=== PATIENT | male | born 1965 | race Caucasian/White ===

== ENCOUNTER → 2016-11-18 | Outpatient (CLI) | payer BC ==
[2016-11-18 08:41] LABS: CH 31.1; CHCM 33.5; HCT 48.6 % (39.0-53.0); HGB 16.3 gm/dL (13.0-17.5); MCH 31.2 pg (25.0-35.0); MCHC 33.5 g/dL (31.0-37.0); MCV 93.3 fL (80.0-100.0); Mean Platelet Volume 8.8; RBC 5.21 m/uL (4.30-5.90); RDW 13.5 % (11.5-15.5); WBC 5.8 k/uL (3.8-10.6)
[2016-11-18 12:47] LABS: ALT 83 U/L (21-72); AST 87 U/L (17-59); Alkaline Phosphatase 117 U/L (38-126); Anion Gap 5 mmol/L; Blood Urea Nitrogen 13 mg/dL (9-20); Carbon Dioxide 28 mmol/L (22-30); Chloride 105 mmol/L (98-107); Glucose 108 mg/dL (74-99); Non-African American GFR(MDRD) >60 (>60 ml/min/1.73 sqM); Sodium 138 mmol/L (137-145); Total Bilirubin 1.1 mg/dL (0.2-1.3); Total Protein 7.4 g/dL (6.3-8.2)
[2016-11-18 13:07] LABS: Follicle Stimulating Hormone 4.2 mIU/mL (1.6-9.7); Prolactin 10.4 ng/mL (3.7-17.9)
== END | disposition home or self-care (01) ==
LOC: LABWHC1 08:25
PROVIDERS: ATTEND Internal Medicine Endocrinology, Diabetes & Metabolism
DX: D35.2 Benign neoplasm of pituitary gland (principal); R53.83 Other fatigue
CPT/HCPCS: 36415; 80053; 82024; 82533; 83001; 83002; 84146; 84403; 84439; 84443; 84481; 85027

== ENCOUNTER → 2016-11-24 | Outpatient (CLI) | payer BC ==
--- NOTE | 2016-11-24 19:24 | US ---
EXAMINATION TYPE: US scrotum with doppler. Grayscale and color Doppler Duplex imaging performed of t iftikhar scrotum. DATE OF EXAM: 11/24/2016 6:09 PM COMPARISON: NONE CLINICAL HISTORY: R79.89 Other specified abnormal findings of blood. Elevated testosterone levels EXAM MEASUREMENTS: TESTICLES: Right Testicle: 4.1 x 2.8 x 3.2 cm Left Testicle: 4.4 x 2.4 x 3.3 cm EPIDIDYMIS HEAD: Right Epididymis: 1.3 cm Left Epididymis: 1.3 cm Doppler performed to assess for testicular vascularity; good bilateral color flow and waveforms are s een. There is no evidence of testicular torsion. Presence of hydroceles: No Presence of varicoceles: No Right epididymis appears prominent. Cyst visualized within left epididymis measuring 0.4 x 0.3 x 0.3 cm IMPRESSION: No testicular torsion or mass. Small left epididymal cyst is noted. No free fluid.
== END | disposition home or self-care (01) ==
LOC: RADUSMAIN 17:40
PROVIDERS: ATTEND Internal Medicine Endocrinology, Diabetes & Metabolism
DX: R79.89 Other specified abnormal findings of blood chemistry (principal)
CPT/HCPCS: 76870; 93975

== ENCOUNTER → 2017-03-15 | Outpatient (CLI) | payer BC ==
[2017-03-15 14:25] LABS: Follicle Stimulating Hormone 4.4 mIU/mL (1.6-9.7)
[2017-03-15 15:18] LABS: DHEA Sulfate 48.8 ug/dL (34.5-568.9)
== END | disposition home or self-care (01) ==
LOC: LABWHC1 09:20
PROVIDERS: ATTEND Internal Medicine
DX: T14.8 Other injury of unspecified body region (principal); R79.89 Other specified abnormal findings of blood chemistry
CPT/HCPCS: 36415; 82157; 82627; 82670; 83001; 83002; 84270; 84402; 84403

== ENCOUNTER → 2017-04-07 | Outpatient (CLI) | payer BC | END | disposition home or self-care (01) | LOC: LABWHC1 09:40 | PROVIDERS: ATTEND Internal Medicine | DX: R79.89 Other specified abnormal findings of blood chemistry (principal) | CPT/HCPCS: 36415; 84443 ==

== ENCOUNTER → 2017-04-13 | Outpatient (CLI) | payer BC ==
--- NOTE | 2017-04-13 12:29 | CT ---
EXAMINATION TYPE: CT abdomen wo/w con DATE OF EXAM: 04/13/2017 COMPARISON: NONE INDICATION: Increased testosterone level DLP: 3497.20 mGycm, Automated exposure control for dose reduction was used. CONTRAST: 100 ml mL of Omnipaque 300. Study performed with Oral Contrast TECHNIQUE: Axial images were obtained from above the diaphragm to the pubic rami in the axial plane a t 5 mm thick sections. Reconstructed images are reviewed on the computer in the coronal plane. FINDINGS: Limited CT sections are obtained the lung bases. The lung bases are clear. CT ABDOMEN: Liver: Liver appears somewhat lobulated. Discrete underlying mass however is not identified. Liver is enlarged measuring 20 cm in craniocaudal dimension. Spleen: Spleen is enlarged measuring 14.5 cm. Normal less than 12.5 cm. Pancreas: Normal Adrenal glands: The adrenal glands are normal. Gallbladder: Surgically absent. Kidneys: No masses are evident. No hydronephrosis is present. No cysts are present. Delayed images were obtained through the kidneys, which remain unremarkable. Aorta: Vascular calcification is within the aorta. Inferior vena cava: Normal. Loops of bowel within the abdomen and pelvis are normal. Loops of bowel lacking oral contrast chaidez iting evaluation. Majority contrast is within the lower small bowel loops. IMPRESSIONS: 1. Hepatosplenomegaly. 2. Liver appears somewhat lobulated. Underlying discrete masses are not identified.
== END | disposition home or self-care (01) ==
LOC: RADXRMAIN 07:08
PROVIDERS: ATTEND Internal Medicine
DX: R16.2 Hepatomegaly with splenomegaly, not elsewhere classified (principal); R79.89 Other specified abnormal findings of blood chemistry
CPT/HCPCS: 74170; Q9967

== ENCOUNTER → 2019-04-04 | Outpatient (CLI) | payer BC, OTHER ==
[2019-04-04 08:33] LABS: INR 2.1 (<1.2); Prothrombin Time 20.2 sec (9.0-12.0)
[2019-04-04 08:38] LABS: Basophils % (A) 1 %; Eosinophils # (A) 0.1 k/uL (0-0.7); Eosinophils % (A) 1 %; Lymphocytes % (A) 13 %; MCH 35.4 pg (25.0-35.0); MCHC 31.6 g/dL (31.0-37.0); MCV 112.1 fL (80.0-100.0); Macrocytosis Marked; Mean Platelet Volume 8.4; Monocytes # (A) 0.7 k/uL (0-1.0); Monocytes % (A) 9 %; Neutrophils # (A) 5.8 k/uL (1.3-7.7); Neutrophils % (A) 74 %; RBC 3.39 m/uL (4.30-5.90); RDW 15.5 % (11.5-15.5); WBC 7.8 k/uL (3.8-10.6)
[2019-04-04 09:13] LABS: Platelet Count 91 k/uL (150-450)
[2019-04-04 16:43] LABS: African American GFR (CKD) 59.5 (60.0-200.0); Albumin 2.3 g/dL (3.80-4.90); Albumin/Globulin Ratio 0.66 (1.60-3.17); Anion Gap 8.6 mmol/L (4.00-12.00); BUN/Creat Ratio 21.33 Ratio (12.00-20.00); Calcium 8.5 mg/dL (8.7-10.3); Carbon Dioxide 25.4 mmol/L (21.6-31.8); Globulin 3.5 g/dL (1.6-3.3); Non-African American GFR(CKD) 51.3 (60.0-200.0); Potassium 5.2 mmol/L (3.5-5.5); Total Bilirubin 8.1 mg/dL (0.2-1.2); Total Protein 5.8 g/dL (6.2-8.2)
== END | disposition home or self-care (01) ==
LOC: LABWHC1 07:20
PROVIDERS: ATTEND Internal Medicine Transplant Hepatology
DX: I95.89 Other hypotension (principal)
CPT/HCPCS: 36415; 80053; 85025; 85610

== ENCOUNTER 2019-05-12 20:05 | Emergency (ER) | payer OTHER ==
[2019-05-12] MEDS ORDERED: KETOROLAC 30 MG/ML 1 ML VIAL IM STA (21:34)
[2019-05-12] MEDS ORDERED: ACETAMINOPHEN TAB 500 MG TAB PO STA (21:38)
--- NOTE | 2019-05-12 21:45 | XR ---
EXAMINATION TYPE: XR shoulder complete LT DATE OF EXAM: 05/12/2019 COMPARISON: NONE HISTORY: Left shoulder pain TECHNIQUE: 3 views FINDINGS: There is no fracture nor dislocation. Joint spaces are normal. There are no pathologic calc ifications. IMPRESSION: Negative left shoulder exam.
--- NOTE | 2019-05-12 22:15 | ED ---
General Adult HPI - General Chief complaint: Extremity Injury, Upper Stated complaint: L Shoulder Pain Time Seen by Provider: 05/12/19 21:26 Source: patient Mode of arrival: ambulatory Limitations: physical limitation - History of Present Illness Initial comments: Patient is a 54-year-old male presenting to the emergency department with a chief complaint of left shoulder pain. Patient reports earlier today when he woke up from bed he had developed sudden onset of left shoulder pain. Patient is concerned for shoulder dislocations. Patient reports he felt a pop in his symptoms develop in the pain. Patient still reports almost full range of motion but states the pain is exacerbated with abduction mostly. Patient denies any numbness or tingling. Patient reports he took Tylenol with minimal improvement. Patient reports the pain is exacerbated with any movement and alleviated at rest. Patient denies trauma to the region - Related Data Home Medications Medication Instructions Recorded Confirmed Acetaminophen [Tylenol Extra 1,000 mg PO BID PRN 05/12/19 05/12/19 Strength] Bisoprolol Fumarate [Zebeta] 10 mg PO DAILY 05/12/19 05/12/19 Cholecalciferol (Vitamin D3) 2,000 unit PO DAILY 05/12/19 05/12/19 [Vitamin D3] Folic Acid 1 mg PO DAILY 05/12/19 05/12/19 Furosemide [Lasix] 20 mg PO BID 05/12/19 05/12/19 Lactulose 20 gm PO TID 05/12/19 05/12/19 Rifaximin [Xifaxan] 550 mg PO BID 05/12/19 05/12/19 Spironolactone 100 mg PO DAILY 05/12/19 05/12/19 Zinc 50 mg PO DAILY 05/12/19 05/12/19 busPIRone HCl [Buspar] 5 mg PO BID 05/12/19 05/12/19 Allergies Allergy/AdvReac Type Severity Reaction Status Date / Time levofloxacin [From Levaquin] Allergy Rash/Hives Verified 05/12/19 21:25 Penicillins AdvReac Dyspnea Verified 05/12/19 21:25 Review of Systems ROS Statement: Those systems with pertinent positive or pertinent negative responses have been documented in the HPI. ROS Other: All systems not noted in ROS Statement are negative. 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, malnutrition on transplant list (05/11), A1A deficiency, History of Any Multi-Drug Resistant Organisms: None Reported Additional Past Surgical History / Comment(s): bennet repair, Past Psychological History: No Psychological Hx Reported Smoking Status: Never smoker Past Alcohol Use History: None Reported Past Drug Use History: None Reported General Exam Limitations: physical limitation General appearance: alert, in no apparent distress Head exam: Present: atraumatic, normocephalic, normal inspection Eye exam: Present: normal appearance, PERRL, EOMI Pupils: Present: normal accommodation ENT exam: Present: normal exam, normal oropharynx, mucous membranes moist, TM's normal bilaterally, normal external ear exam Neck exam: Present: normal inspection, full ROM Respiratory exam: Present: normal lung sounds bilaterally Cardiovascular Exam: Present: regular rate, normal rhythm, normal heart sounds Extremities exam: Present: normal inspection (No bony deformities of the left shoulder), tenderness (Anterior and lateral deltoid tenderness), normal capillary refill, other (+2 ulnar and radial pulses bilaterally.). Absent: full ROM (Limited range of motion due to pain especially with abduction above 90.) Back exam: Present: normal inspection, full ROM. Absent: tenderness, CVA tenderness (R), CVA tenderness (L) Neurological exam: Present: alert, oriented X3 Psychiatric exam: Present: normal affect, normal mood Skin exam: Present: warm, intact, normal color Course Vital Signs 05/12/19 05/12/19 20:55 22:30 Temperature 98.4 F 98.2 F Pulse Rate 72 74 Respiratory 17 18 Rate Blood Pressure 127/71 127/78 O2 Sat by Pulse 98 98 Oximetry Medical Decision Making - Medical Decision Making Patient is a 54-year-old male presenting to emergency Department with a chief complaint of low shoulder pain. Patient developed left shoulder pain earlier today when he woke up and felt a pop with a sudden onset of pain. Patient is concerned for shoulder dislocations. Physical examination no bony deformities are noted with limited range of motion only in abduction above 90. X-ray of the left shoulder is unremarkable for fractures or dislocations. I gave the patient a sling because he feels relief when the arm is close to him at 90 elbow flexion. Patient advised to follow-up with orthopedics if symptoms are not improved within a week. I suspect the patient to develop a shoulder sprain while he was sleeping or even a possible rotator cuff injury. Strict return parameters were thoroughly discussed the patient is understanding and agreeable. Case discussed with physician. Disposition Clinical Impression: Shoulder pain, left Disposition: HOME SELF-CARE Condition: Stable Instructions (If sedation given, give patient instructions): Shoulder Sprain (ED) Additional Instructions: Please follow up with orthopedics if symptoms not improved within a week. Please return to emergency department if symptoms get worse Is patient prescribed a controlled substance at d/c from ED?: No Referrals: None,Stated [Primary Care Provider] - 1-2 days Jonnathan Aguilar MD [STAFF PHYSICIAN] - 1-2 days Time of Disposition: 22:15
[2019-05-12 22:32] VITALS: BP 127/78; PULSE 74; RESP 18; TEMP 98.2
== END 2019-05-12 22:30 | disposition home or self-care (01) ==
LOC: EC 20:05
DX: M25.512 Pain in left shoulder (principal); Z79.899 Other long term (current) drug therapy; Z88.0 Allergy status to penicillin; Z88.1 Allergy status to other antibiotic agents
CPT/HCPCS: 99283

== ENCOUNTER → 2019-06-05 | Outpatient (CLI) | payer OTHER ==
[2019-06-05 09:55] LABS: Prothrombin Time 10.6 sec (9.0-12.0)
[2019-06-05 10:22] LABS: Anisocytosis Slight; Basophils # (A) 0.1 k/uL (0-0.2); Basophils % (A) 1 %; Eosinophils # (A) 0.1 k/uL (0-0.7); Eosinophils % (A) 1 %; HCT 30.9 % (39.0-53.0); HGB 10.2 gm/dL (13.0-17.5); Hypochromasia Moderate; Lymphocytes % (A) 12 %; MCH 32.9 pg (25.0-35.0); MCHC 32.9 g/dL (31.0-37.0); Macrocytosis Slight; Mean Platelet Volume 5.6; Monocytes # (A) 0.3 k/uL (0-1.0); Monocytes % (A) 4 %; Neutrophils # (A) 7.2 k/uL (1.3-7.7); Neutrophils % (A) 81 %; Poikilocytosis Moderate; RBC 3.09 m/uL (4.30-5.90); RDW 17.1 % (11.5-15.5); WBC 8.9 k/uL (3.8-10.6)
[2019-06-05 10:24] LABS: MCV 99.9 fL (80.0-100.0); Platelet Count 231 k/uL (150-450)
[2019-06-05 17:32] LABS: African American GFR (CKD) 86.5 (60.0-200.0); Albumin 3.6 g/dL (3.80-4.90); Albumin/Globulin Ratio 2.4 (1.60-3.17); BUN/Creat Ratio 16.36 Ratio (12.00-20.00); Bilirubin, Conjugated 0.8 mg/dL (0.20-0.40); Bilirubin,Unconjugated 0.4 mg/dL; Calcium 8.8 mg/dL (8.7-10.3); Globulin 1.5 g/dL (1.6-3.3); Magnesium 1.3 mg/dL (1.5-2.4); Phosphorus 3.7 mg/dL (2.4-5.1); Potassium 4.7 mmol/L (3.5-5.5); Total Bilirubin 1.2 mg/dL (0.3-1.2); Total Protein 5.1 g/dL (6.2-8.2)
== END ==
LOC: LABWHC1 09:16
PROVIDERS: ATTEND Internal Medicine
DX: Z51.81 Encounter for therapeutic drug level monitoring (principal); Z79.899 Other long term (current) drug therapy; Z94.4 Liver transplant status
CPT/HCPCS: 36415; 80048; 80076; 83735; 84100; 85025; 85610

== ENCOUNTER → 2023-12-06 | Outpatient (CLI) | payer MEDICARE, OTHER ==
--- NOTE | 2023-12-06 11:01 | CA ---
Stress Echo Report Jayjay Luna Age: 58 Gender: M : 1965 Exam Date: 12/06/2023 09:41 Exam Location: [place] Stress Ht (in): 71 Wt (lb): 262 Ordering Physician: Nina Dominguez MD Referring Physician: ASTON, Supervisor Cigar Processing: Joni Meyer Technologist Procedure CPT: Indication: R00.2 palpitations ICD-9 Codes: Rhythm: Patient History: Cardiac Medications: AMLODOPINE, AMILODIPINE Medications in past 24 hours: Contrast: N/A Stress Results Protocol: Jc Total dose(mL): NA Exercise Duration (min:sec): 8:[address] Depression (mm): Angina Score: Wharton Score: METS: 9.5 Resting HR: 90 Resting BP: 137 / 67 Peak HR: 149 Peak BP: 204 / 94 Max Predicted HR: 160 93 % Max Predicted HR Target HR: 136 Double Product: 32002 Stress Summary: BP Response: Reason for Termination: Reached target heart rate or work-load Cardiac Symptoms: NO SYMPTOMS ECG Analysis Resting ECG: Normal sinus rhythm normal axis normal intervals Stress ECG: Patient exercised on Jc protocol for 8 minutes achieving 85% of predicted maximal heart rate without chest pain or diagnostic ST segment depression Arrhythmia: Echo Analysis Resting Echo: Baseline echo is technically suboptimal secondary to poor echo windows left ventricle has normal size and systolic function Peak Echo Analysis: Technically suboptimal no obvious evidence of exercise induced wall motion abnormalities MEASUREMENTS (Male/Female) Normal Values DOPPLER AV Peak Velocity 193.1 cm/s AV Peak Gradient 14.9 mmHg AV Mean Velocity 134.9 cm/s AV Mean Gradient 8.0 mmHg AV Velocity Time Integral 37.5 cm AI Peak Velocity 517.8 cm/s AI Peak Gradient 107.2 mmHg AI Pressure Half Time 381.5 ms CONCLUSIONS Good exercise tolerance Technically suboptimal echo images No obvious exercise induced wall motion abnormalities Dr. Filipe Mercado MD (Electronically Signed) Final Date: 06 December 2023 11:00
== END | disposition home or self-care (01) ==
LOC: RADNMMAIN 07:03
PROVIDERS: ATTEND Family Medicine
DX: R00.2 Palpitations (principal)
CPT/HCPCS: 93351

== ENCOUNTER → 2023-12-17 | Outpatient (CLI) | payer MEDICARE, OTHER ==
--- NOTE | 2024-01-03 08:30 | EM ---
EVENT MONITOR STUDY: 7-day event monitor. FINDINGS: The baseline rhythm appeared to be sinus mechanism. The patient did have multiple episodes of PACs with a PAC burden of 3% and multiple episodes of PVCs with a PVC burden of 3% as well. No sinus pause or sinus arrest. CONCLUSION: 1. This is a 7-day event monitor. 2. The baseline rhythm appeared to be sinus mechanism. 3. Prior PACs and PVCs. 4. No evidence of sinus pause or sinus arrest. MMODL / IJN: [id number] /
== END | disposition home or self-care (01) ==
LOC: RADECHMAIN 08:03
PROVIDERS: ATTEND Family Medicine
DX: I49.3 Ventricular premature depolarization (principal); I49.1 Atrial premature depolarization; R00.2 Palpitations
CPT/HCPCS: 93270

== ENCOUNTER → 2024-03-17 | Outpatient (CLI) | payer MEDICARE, OTHER ==
--- NOTE | 2024-03-17 13:10 | FL ---
EXAMINATION TYPE: FL sniff test without CXR DATE OF EXAM: 03/17/2024 COMPARISON: NONE HISTORY: Diaphragmatic paralysis TECHNIQUE: Fluoroscopy. 26sec fl time, BEI=4657.25 FINDINGS: There is paradoxical motion of the left hemidiaphragm compared to the right upon sniffing. IMPRESSION: Left diaphragmatic paralysis.
== END | disposition home or self-care (01) ==
LOC: RADUSWWP 12:42
PROVIDERS: ATTEND Internal Medicine Pulmonary Disease
DX: E66.01 Morbid (severe) obesity due to excess calories (principal); Z94.4 Liver transplant status; I35.0 Nonrheumatic aortic (valve) stenosis; I12.9 Hypertensive chronic kidney disease with stage 1 through stage 4 chronic kidney disease, or unspecified chronic kidney disease; F41.9 Anxiety disorder, unspecified; Z68.36 Body mass index [BMI] 36.0-36.9, adult; J98.6 Disorders of diaphragm; N18.9 Chronic kidney disease, unspecified
CPT/HCPCS: 76000

== ENCOUNTER → 2024-08-29 | Outpatient (CLI) | payer MEDICARE ==
--- NOTE | 2024-08-29 11:31 | US ---
EXAMINATION TYPE: US thyroid st tissue head/neck DATE OF EXAM: 08/29/2024 COMPARISON: Prior report scanned into PACS CLINICAL INDICATION: Male, 59 years old with history of E041 THYROID NODULE; Benign biopsy TECHNIQUE: Grayscale and color Doppler imaging of the thyroid gland. FINDINGS: GLAND SIZE: Right Lobe: 6.3 x 2.2 x 2.6 cm Overall Parenchyma: heterogeneous Left Lobe: 7.0 x 3.8 x 2.6 cm Overall Parenchyma: heterogeneous Isthmus Thickness: 1.0 cm NODULES RIGHT: # of nodules measured on right: 2 1. 2.3 X 1.9 x 2.3 cm, lower lateral, solid or almost completely solid, isoechoic nodule, which is wider than tall, with ill-defined margins, without echogenic foci. TR 3 Prior size: Prior not done here 2. 1.8 X 1.4 x 2.0 cm, lower medial, solid or almost completely solid, isoechoic nodule, which is w ider than tall, with ill-defined margins, without echogenic foci. TR 3 Prior size: Prior not done here LEFT: # of nodules measured on left: 1 1. 3.1 X 2.3 x 2.8 cm, lower medial, solid or almost completely solid, hyperechoic nodule, which is wider than tall, with smooth margins, without echogenic foci. TR 3 Prior size: Prior not done here ISTHMUS: # of nodules measured in the isthmus: 0 Bilateral neck scanned, no evidence of lymphadenopathy. Heterogeneous enlarged multinodular thyroid gland. IMPRESSION: Imaging guided FNA of the TR3 largest left-sided thyroid nodule. Sonographic follow-up of the right-s ided nodules. 2017 ACR TI-RADS LEVEL: TR-RADS 3 - Mildly Suspicious: Follow if > 1.5 cm, FNA if > 2.5 cm *Highest TI-RADS level nodule reported [email or web address] [facility], , 08/29/2024 11:29 AM
== END | disposition home or self-care (01) ==
LOC: RADUSWWP 10:38
PROVIDERS: ATTEND Family Medicine
DX: E04.2 Nontoxic multinodular goiter (principal)
CPT/HCPCS: 76536

== ENCOUNTER → 2025-03-15 | Outpatient (CLI) | payer MEDICARE ==
[2025-03-15 15:36] LABS: African American GFR (CKD) 67 (>60 ml/min/1.73 sqM); Anion Gap 10 mmol/L; Blood Urea Nitrogen 33 mg/dL (9-20); Calcium 9.1 mg/dL (8.4-10.2); Carbon Dioxide 23 mmol/L (22-30); Chloride 108 mmol/L (98-107); Glucose 146 mg/dL (74-99); Non-African American GFR(CKD) 58 (>60 ml/min/1.73 sqM); Potassium 4.6 mmol/L (3.5-5.1); Sodium 141 mmol/L (137-145)
[2025-03-15 15:40] LABS: NT-Pro-B-Type Natriuretic Pept <20 pg/mL
== END | disposition home or self-care (01) ==
LOC: LABWHC1 14:51
PROVIDERS: ATTEND Thoracic Surgery (Cardiothoracic Vascular Surgery)
DX: I35.1 Nonrheumatic aortic (valve) insufficiency (principal)
CPT/HCPCS: 36415; 80048; 83880